=== PATIENT | female | born 1990 | race Caucasian/White ===

== ENCOUNTER 2017-01-27 23:00 | Inpatient (IN) | payer OTHER ==
[~2017-01-27] VITALS: Ht 162.6 cm; Wt 94.8 kg
--- NOTE | ~2017-01-27 | PN ---
Unit #: [id number] #: [id number] Patient: KIT SANCHEZ [id number] [facility] [address] [place] [address] [id number] MR#: [id number] NAME: KIT SANCHEZ ROOM: [facility] Age: 26 Sex: F Admission Date: 01/28/2017 : 1990 Attending Physician: Gregory Mandujano M.D. Admitting Physician: Gregory Mandujano M.D. Primary Care Physician: Primary Care Physician Sushila PATTON PROGRESS NOTES DATE 01/29/2017 DISCUSSION Ms. Penn is a 26-year-old female. Patient interviewed. Chart reviewed. Obtained information from nursing staff. Patient compliant, cooperative. Mood sad, dysphoric, flat affect, withdrawn, isolative. Patient still reporting having passive SI. Complete review of system unremarkable. MENTAL STATUS EXAMINATION General appearance, patient dressed casually. Attention span, concentration fair. Oriented in time, place and person. Mood and affect labile. Speech monotone. Thought process concrete. Patient reported having suicidal ideation, sad, depressed, anxious, having anxiety. On the COWS scored 8. Recent and remote memory poor. Insight and judgement poor. DIAGNOSES 1. Mood disorder NOS. 2. Opiate use disorder, severe. ASSESSMENT/PLAN Advised to continue with current medication and therapeutic protocol. If needed, consider further adjustment of medication. Dictated by... Gregory Manduajno M.D. REBECA/dalia TD: 01/30/2017 16:36 JOB #: [id number] Unit #: [id number] #: [id number] Patient: KIT SANCHEZ [facility] PROGRESS NOTES Page 1 of 1 X Gregory Mandujano MD PROGRESS NOTE
--- NOTE | ~2017-01-27 | PN ---
Unit #: [id number] #: [id number] Patient: KIT SANCHEZ [id number] [facility] [address] [place] [address] [id number] MR#: [id number] NAME: KIT SANCHEZ ROOM: [facility] Age: 26 Sex: F Admission Date: 01/28/2017 : 1990 Attending Physician: Gregory Mandujano M.D. Admitting Physician: Gregory Mandujano M.D. Primary Care Physician: Primary Care Physician Sushila PATTON PROGRESS NOTES DATE 01/31/2017 DISCUSSION Ms. Penn is a 26-year-old female. The patient interviewed, chart reviewed, and obtained information from the nursing staff. The patient was compliant and cooperative, making progress. The patient still isolative, guarded. REVIEW OF SYSTEMS Complete review of systems unremarkable. MENTAL STATUS EXAMINATION General appearance: Patient dressed casually. Attention span and concentration, fair. Oriented in time, place, and person. Mood and affect, sad and dysphoric. Speech, monotone. Thought process, concrete. The patient denied any thoughts of harming self or others, withdrawn, isolative. Recent and remote memory, poor. Insight and judgment, poor. DIAGNOSES 1. Mood disorder, NOS. 2. Opiate use disorder, severe. ASSESSMENT/PLAN Advised to continue with the current medication and therapeutic protocol, and if needed consider further adjustment of medication. Dictated by... Belle Kamara/lizandro TD: 02/02/2017 10:46 JOB #: [id number] Unit #: [id number] #: [id number] Patient: KIT SANCHEZ PEALOLITA PROGRESS NOTES Page 1 of 1 X Gregory Mandujano MD PROGRESS NOTE
--- NOTE | ~2017-01-27 | PN ---
Unit #: [id number] #: [id number] Patient: KIT SANCHEZ [id number] [facility] [address] [place] [address] [id number] I MR#: [id number] NAME: KIT SANCHEZ ROOM: [facility] Age: 26 Sex: F Admission Date: 01/28/2017 : 1990 Attending Physician: Gregory Mandujano M.D. Admitting Physician: Gregory Mandujano M.D. Primary Care Physician: Primary Care Physician Sushila PATTON PROGRESS NOTES DATE OF SERVICE 01/30/2017 DISCUSSION Kit is a 26-year-old female seen on 01/30/2017. Patient interviewed, chart reviewed. Obtained information from nursing staff. Patient continues to be seclusive, isolative, guarded, anxious, nervous, sad, depressed. Patient was able to maintain safe behavior. Currently on detox protocol. Patient still reporting having withdrawal symptoms, anxiety, headaches, increased . Complete review of systems unremarkable. MENTAL STATUS EXAMINATION General appearance, patient dressed casually. Attention span and concentration fair. Oriented to time, place and person. Mood and affect labile. Speech monotone. Thought process concrete. Patient denied any thoughts of harming self or others. Recent and remote memory poor. Insight and judgement poor. DIAGNOSES 1. Mood disorder NOS. 2. Opioid use disorder, severe. ASSESSMENT/PLAN Advise to continue with current medication and therapeutic protocol. If needed consider further adjustment of medication. Dictated by... Belle Kamara/blaire TD: 02/01/2017 05:02 JOB #: [id number] Unit #: [id number] #: [id number] Patient: KIT SANCHEZ PEALOLITA PROGRESS NOTES Page 1 of 1 X Gregory Mandujano MD PROGRESS NOTE
--- NOTE | ~2017-01-27 | DS ---
Unit #: [id number] #: [id number] Patient: KIT SANCHEZ [id number] [facility] [address] [place] [address] [id number] I MR#: [id number] NAME: KIT SANCHEZ ROOM: [facility] Age: 26 Sex: F Admission Date: 01/28/2017 : 1990 Discharge Date: 02/02/2017 Attending Physician: Gregory Mandujano M.D. Primary Care Physician: Primary Care Physician No DISCHARGE SUMMARY REASON FOR ADMISSION Suicidal ideation, addiction. DIAGNOSTIC STUDIES LABORATORY DATA: Unremarkable. HOSPITAL COURSE The patient was admitted to inpatient unit on January 28, 2017, and discharged on 02/02/2017. The patient was treated on the inpatient unit with chemical dependency group, structured milieu, and psychoeducation. The patient responded well with the above modalities of treatment and showed improvement. Subsequently the patient was discharged with a plan to follow up in outpatient program. DISCHARGE MEDICATIONS 1. Celexa 20 mg daily for depression. 2. Vistaril 25 mg 3 times a day for anxiety. DISCHARGE DIAGNOSES PSYCHIATRIC: Major depressive disorder, recurrent, severe, F33.2. Alcohol use disorder, severe, F10.20. Sedative hypnotic use disorder, severe, F13.20 Opiate use disorder, severe, F11.20 SECONDARY: Deferred. MEDICAL: Seizure disorder. STRESSORS: Psychosocial stressor. FOLLOWUP CARE The patient to follow up in outpatient clinic as per transition social worker. CONDITION AT DISCHARGE The patient pleasant, cooperative. Denied any thoughts or harming self or others. PROGNOSIS Guarded. DIET AND ACTIVITY As tolerated. Dictated by... Unit #: [id number] #: [id number] Patient: KIT SANCHEZ Belle Kamara/pradeep TD: 02/03/2017 11:29 JOB #: [id number] DISCHARGE SUMMARY Page 1 of 1 X Gregory Mandujano MD X DISCHARGE SUMMARY
--- NOTE | ~2017-01-27 | PN ---
Unit #: [id number] #: [id number] Patient: KIT SANCHEZ [id number] [facility] [address] [place] [address] [id number] MR#: [id number] NAME: KIT SANCHEZ ROOM: [facility] Age: 26 Sex: F Admission Date: 01/28/2017 : 1990 Attending Physician: Gregory Mandujano M.D. Admitting Physician: Gregory Mandujano M.D. Primary Care Physician: Primary Care Physician Sushila GREGORIO NOTES DATE 02/01/2017 DISCUSSION Ms. Penn is a 26-year-old female, seen on 02/01/2017. The patient interviewed, chart reviewed, and obtained information from the nursing staff. The patient was compliant and cooperative. Mood sad and dysphoric. The patient reports mood is getting better but still having suicidal ideation, passive, unable to contract for safety. Therefore, discharge was cancelled. REVIEW OF SYSTEMS Complete review of systems unremarkable. MENTAL STATUS EXAMINATION General appearance: Patient dressed casually. Attention span and concentration, fair. Oriented in time, place, and person. Mood and affect, sad, dysphoric. Speech, monotone. Thought process, concrete. The patient reported having passive SI, unable to contract for safety, discharged today, denied any psychotic symptoms. Recent and remote memory, poor. Insight and judgment, poor. DIAGNOSES 1. Mood disorder, NOS. 2. Opiate use disorder, severe. ASSESSMENT/PLAN Advised to continue with the current medication and therapeutic protocol, and consider discharge tomorrow as the patient unable to contract for safety. Continue with the inpatient programming. Dictated by... Belle Kamara/lizandro TD: 02/02/2017 11:33 JOB #: [id number] Unit #: [id number] #: [id number] Patient: KIT SANCHEZ POOJA GREGORIO NOTES Page 1 of 1 X Gregory Mandujano MD PROGRESS NOTE
--- NOTE | ~2017-01-27 | PA ---
Unit #: [id number] #: [id number] Patient: KIT SANCHEZ [id number] [facility] [place] [address] [id number] MR#: [id number] NAME: KIT SANCHEZ ROOM: [facility] Age: 26 Sex: F Admission Date: 01/28/2017 : 1990 Date of Assessment: 01/28/2017 Attending Physician: Gregory Mandujano M.D. Admitting Physician: Gregory Mandujano M.D. Primary Care Physician: Primary Care Physician No PSYCHIATRIC ASSESSMENT INFORMANTS The patient reliability, fair informant; chart reliability, good. CHIEF COMPLAINT Suicidal ideation, abusing pain medications Xanax. HISTORY OF PRESENT ILLNESS Ms. Penn is a 26-year-old female, presented with the above-mentioned complaints. The patient has a history of previous treatment at [facility], and [facility] for detox and suicidal ideation. The patient presented due to suicidal ideation with a plan to overdose on pills, drink herself to , slit her wrist. The patient reported overdosing on pills. The patient reported she has been drinking a pint of Whisky every other day. The patient reported taking 10 to 15 Lortab daily. The patient reported taking Lortabs for the last 10 years. The patient reported last time was yesterday. The patient reported she took 13 pills. She reported she took 2 mg of Xanax daily. The patient also reported suicidal ideation. The patient's tobacco use, age of onset 11; alcohol, age of onset 16; opioid, age of onset 14; benzodiazepine, age of onset 16. Last period of sobriety 8 months. The patient reported no history of IV drug use, but history of withdrawal symptom. No blackout, HIV, or hepatitis history. Currently reporting headache, withdrawals, restlessness, poor concentration, needing inpatient admission at this time for psychiatric stabilization. PAST PSYCHIATRIC HISTORY Remarkable for history of previous treatment as mentioned above. FAMILY HISTORY AND SOCIAL HISTORY The patient has a poor support system. The patient's family history is remarkable for history of substance abuse from father and mother and mental illness in grandparents and no legal problems, but past charges. No known history of any physical abuse, sexual abuse, or emotional abuse. MEDICAL HISTORY Remarkable for history of seizure disorder. Musculoskeletal; muscle strength and tone, no atrophy or abnormal movement. Gait normal. MEDICATION HISTORY None. ALLERGIES No known drug allergies. Unit #: [id number] #: [id number] Patient: KIT SANCHEZ SUBSTANCE ABUSE HISTORY Please see above. REVIEW OF SYSTEMS HEENT: Eyes, clear. Ears, nose, mouth, and throat; clear. CARDIOVASCULAR: Unremarkable. RESPIRATORY: Unremarkable. GI: Unremarkable. : Unremarkable. SKIN: Unremarkable. LYMPH NODE: Unremarkable. NEUROLOGIC: Unremarkable. ENDOCRINE: Unremarkable. HEMATOLOGIC: Unremarkable. ALLERGIC/IMMUNOLOGIC: Unremarkable. MUSCULOSKELETAL: Muscle strength and tone, no atrophy or abnormal movement. Gait normal. MENTAL STATUS EXAMINATION CONSTITUTIONAL: Measurement of vital signs; temperature 98.6, pulse 116, respirations 18, blood pressure 114/66, height 5 feet 4 inches, weight 209 pounds. GENERAL APPEARANCE: The patient dressed casually. The patient did not show any facial deformity. MUSCULOSKELETAL: Please see above. PSYCHIATRIC EXAMINATION Description of speech; regular rate, normal volume, normal articulation, coherent. Description of thought process, goal directed. Description of association, intact. Description of abnormal psychotic thinking; the patient denied any hallucination or delusions, but depression, substance abuse, suicidal ideation. Description of the patient's judgment, concerning everyday activity, poor. Social situation, poor. Concerning psychiatric condition, poor. Complete mental status examination; oriented in time, place, and person. Recent and remote memory, fair. Attention span and concentration, fair. Language, able to name object and repeat phrases. Fund of knowledge, aware of current event and passive vocabulary intact. Mood and affect, sad and dysphoric. Insight and judgment, fair to poor. ASSETS AND LIABILITIES Assets, the patient is articulate and able to take care of her ADL. Liability, history of substance abuse, depression. ADMITTING DIAGNOSES Psychiatric: Major depressive disorder, recurrent, severe, F33.2; alcohol use disorder, severe; sedative hypnotic use disorder, severe, F13.20; opioid use disorder, severe, F11.20. Secondary diagnosis: Deferred. Medical diagnoses: Seizure disorder. Stressors: Psychosocial stressors. PSYCHIATRIC PLAN AND TREATMENT GOAL AND DISCHARGE PLAN 1. Advised to admit the patient on the inpatient unit. Provide safe, Unit #: [id number] #: [id number] Patient: GUYNN,KIT supportive, and structured environment. 2. Ordered labs; CBC, CMP, UA, UDS, test. 3. SP1 precaution. 4. Detox protocol and detox monitoring. Monitor for seizure. 5. The patient to attend all the programing group therapy, individual therapy, chemical dependency group. 6. Treatment goal; to attain euthymic mood, gain insight into her problem, and learn coping skills. 7. Discharge plan; plan to stabilize the patient and consider followup in outpatient program. ESTIMATED LENGTH OF STAY 5 to 7 days. Dictated by... Gregory Mandujano M.D. REBECA/michael TD: 01/29/2017 15:03 JOB #: [id number] PSYCHIATRIC ASSESSMENT Page 1 of 1 X Gregory Mandujano MD PSYCHIATRIC ASSESSMENT
[2017-01-28 09:49] LABS: BASOPHIL# 0.1 X10e3 (0-0.3); BASOPHIL% 0.9 % (0-2.5); EOSINOPHIL% 0.5 % (0.0-7.0); HEMATOCRIT 36.3 % (35.0-45.0); HEMOGLOBIN 12.3 gm/dL (12.0-16.0); LYMPHOCYTE# 2.8 X10e3 (1.0-3.5); LYMPHOCYTE% 38.9 % (17.0-45.0); MEAN CELL VOLUME 94.3 FL (83-96); MEAN CORPUSCULAR HEMOGLOBIN 32.1 PG (28-34); MEAN PLATELET VOLUME 7.9 FL (6.5-11.5); MONOCYTE# 0.4 X10e3 (0-1.0); MONOCYTE% 5.6 % (3.0-12.0); NEUTROPHIL# 3.8 X10e3 (1.5-7.1); NEUTROPHIL% 54.1 % (40-75); PLATELET COUNT 406 X10e3 (140-420); RED BLOOD COUNT 3.85 X10e (3.90-5.30); RED CELL DISTRIBUTION WIDTH 12.3 % (11.0-15.5); WHITE BLOOD COUNT 7.1 X10e3 (4.0-10.5)
[2017-01-28 10:00] LABS: DIFF IND NO
[2017-01-28 10:07] LABS: AMPHETAMINE NEG (NEG); BARBITURATES NEG (NEG); BENZODIAZEPINES NEG (NEG); COCAINE NEG (NEG); MARIJUANA NEG (NEG); OPIATES NEG (NEG); TRICYCLIC ANTIDEPRESSANTS POS (NEG); U METHADONE NEG (NEG)
[2017-01-28 10:15] LABS: URINE APPEARANCE CLEAR; URINE BILIRUBIN NEG (NEG); URINE BLOOD NEG (NEG); URINE COLOR YELLOW; URINE GLUCOSE NEG (NEG); URINE KETONE NEG (NEG); URINE LEUKOCYTE ESTERASE NEG (NEG); URINE NITRATE NEG (NEG); URINE PROTEIN NEG (NEG); URINE UROBILINOGEN 0.2 MG/DL (NEG)
[2017-01-28 10:25] LABS: ALBUMIN SERUM 4.7 g/dL (3.5-5.0); BILIRUBIN,TOTAL 0.8 mg/dL (0.2-2.0); BUN/CREATININE RATIO 17.14; CALCIUM SERUM 9.4 mg/dL (8.4-10.2); CREATININE SERUM 0.7 mg/dL (0.6-1.4); GLOM FILT RATE Estimated 118.7 mL/min (>60); POTASSIUM 4.2 mmol/L (3.5-5.1); PROTEIN TOTAL SERUM 7.4 g/dL (6.0-8.3)
== END 2017-02-02 12:45 | DRG 885 ==
LOC: P2S 01-28 03:27
PROVIDERS: Psychiatry & Neurology Psychiatry
PROC: HZ2ZZZZ Detoxification Services for Substance Abuse Treatment (ICD-10-PCS; principal; 2017-01-29)
DX: F33.2 Major depressive disorder, recurrent severe without psychotic features (principal); R45.851 Suicidal ideations; F11.20 Opioid dependence, uncomplicated; F13.20 Sedative, hypnotic or anxiolytic dependence, uncomplicated; F10.20 Alcohol dependence, uncomplicated; G40.909 Epilepsy, unspecified, not intractable, without status epilepticus
CPT/HCPCS: 80053; 80307; 81003; 84703; 85025; 86592